=== PATIENT | male | born 1950 | race Caucasian/White ===

== ENCOUNTER 2016-06-26 02:39 | Emergency (ER) | payer MEDICARE ==
[2016-06-26 02:59] LABS: BASOPHIL 0.3 % (0-2); EOSINOPHIL 1.4 % (0-7); HCT 43.9 % (42.0-52.0); HGB 15.3 g/dl (13.2-18.0); LYMPHOCYTE 10.1 % (15-48); MCH 30.5 pg (25.0-31.0); MCHC 34.9 g/dL (32.0-36.0); MCV 87.6 fL (78.0-100.0); MONOCYTE 7.4 % (0-12); MPV 9.7 fL (6.0-9.5); NEUTROPHIL 80.8 % (41-80); PLT 360 K/uL (150-400); RBC 5.01 M/uL (4.70-6.00); RDW 14.2 % (11.5-14.0); WBC 14.3 K/uL (4.0-10.5)
[2016-06-26 03:07] LABS: INR 1.08 (0.9-1.2); PROTHROMBIN TIME 13.6 SECONDS (11.7-14.0); PTT 27.9 SECONDS (23.2-31.4)
[2016-06-26 03:13] LABS: ALBUMIN 4.3 g/dL (3.4-4.8); BILIRUBIN - TOTAL 0.4 mg/dL (0.1-1.0); CREATININE 1.2 mg/dL (0.7-1.2); POTASSIUM 4.5 mmol/L (3.5-5.1); TOTAL PROTEIN 7.3 g/dL (6.4-8.3)
[2016-06-26 05:35] LABS: BILIRUBIN NEGATIVE (NEGATIVE); BLOOD 1+ Ery/uL (NEGATIVE); CLARITY CLEAR (CLEAR); COLOR YELLOW (YELLOW); GLUCOSE (U) NORMAL (NORMAL); KETONE (U) NEGATIVE (NEGATIVE); LEUKOCYTES NEGATIVE Leu/uL (NEGATIVE); NITRITE NEGATIVE (NEGATIVE); PROTEIN TRACE (LOW) mg/dL (NEGATIVE); UROBILINOGEN 0.2 mg/dL (0.2-1.0); pH 5.5 (5.0-9.0)
[2016-06-26 05:40] LABS: SQUAMOUS EPITHELIAL CELLS RARE; URINARY RBC RARE; URINARY WBC RARE
[2016-06-26 05:54] LABS: AMPHETAMINES NEGATIVE (NEGATIVE); BENZODIAZEPINES NEGATIVE (NEGATIVE); COCAINE NEGATIVE (NEGATIVE)
[2016-06-26 05:55] LABS: BARBITURATES NEGATIVE (NEGATIVE); MARIJUANA (THC) NEGATIVE (NEGATIVE); METHADONE NEGATIVE (NEGATIVE); TRICYCLIC ANTIDEPRESSANT NEGATIVE (NEGATIVE)
[2016-08-31] MEDS ORDERED: ACETAMINOPHEN325 MG PO (12:15)
[2016-08-31] MEDS ORDERED: TYLENOL650 MG PR (12:16)
[2016-08-31] MEDS ORDERED: NICODERM CQ1 EACH TOP (12:17)
[2016-08-31] MEDS ORDERED: ONDANSETRON4 MG/2 ML IV (12:17)
== END 2016-06-26 07:08 | disposition home or self-care (01) ==
LOC: FER 02:39
PROVIDERS: Emergency Medicine
DX: G40.409 Other generalized epilepsy and epileptic syndromes, not intractable, without status epilepticus (principal); F17.200 Nicotine dependence, unspecified, uncomplicated
CPT/HCPCS: 36415; 70450; 71010; 80053; 80305; 81001; 85025; 85610; 85730; 93005; G0480; J1953